=== PATIENT | male | born 1975 | race Caucasian/White ===

== ENCOUNTER 2016-08-22 08:03 | Emergency (ER) | payer BC, SELFPAY ==
[~2016-08-22] VITALS: Ht 172.7 cm; Wt 100.0 kg
[2016-08-22 08:11] VITALS: BP 132/85
[2016-08-22] MEDS ORDERED: KETOROLAC 60 MG/2 ML VIAL (J1885) IM ONE (10:15)
--- NOTE | 2016-08-22 10:58 | REP ---
RIGHT KNEE SERIES, FIVE VIEWS: There is no evidence of an acute fracture, dislocation or intrinsic bone disease. There is a suprapatellar joint effusion. IMPRESSION: No fracture or dislocation. There is a suprapatellar joint effusion. Signed by Roldan Miller MD 08/22/2016 08:18 P
[2016-08-22] MEDS ORDERED: NORCOTAB PO (11:06)
[2016-08-22] MEDS ORDERED: INDO50CA PO (11:11)
== END 2016-08-22 11:18 | disposition home or self-care (01) ==
LOC: M ED 09:36
DX: S83.91XA Sprain of unspecified site of right knee, initial encounter (principal); M25.571 Pain in right ankle and joints of right foot; X58.XXXA Exposure to other specified factors, initial encounter; Y92.009 Unspecified place in unspecified non-institutional (private) residence as the place of occurrence of the external cause; Y93.01 Activity, walking, marching and hiking; Y99.8 Other external cause status; M10.9 Gout, unspecified
CPT/HCPCS: 73564; 96372; 99283; J1885

== ENCOUNTER 2016-11-21 17:09 | Emergency (ER) | payer BC, SELFPAY ==
[~2016-11-21] VITALS: Ht 172.7 cm; Wt 102.3 kg
[~2016-11-21 17:09] MED LIST: INDO50CA PO; NORCOTAB PO
[2016-11-21] MEDS ORDERED: ASPIRIN 81 MG CHEW TABLET PO ONE (18:15)
[2016-11-21 18:35] LABS: BASO # 0.1 K/mm3 (0.0-0.2); BASO % 0.8 % (0.0-1.0); EOS # 0.1 K/mm3 (0.0-0.50); EOS % 1.6 % (0.0-3.0); LARGE UNSTAINED CELL # 0.1 K/mm3 (0.0-0.4); LARGE UNSTAINED CELL % 1.7 % (0.0-4.0); LYMPH # 1.8 K/mm3 (1.5-4.5); LYMPH % 22.7 % (24.0-44.0); MEAN CORPUSCULAR HEMOGLOBIN 32.5 pg (27.0-33.0); MEAN CORPUSCULAR HGB CONC 33.8 g/dl (32.0-36.5); MEAN CORPUSCULAR VOLUME 96.2 fl (80.0-96.0); MONO # 0.4 K/mm3 (0.0-0.8); MONO % 5.9 % (0.0-5.0); NEUTROPHILS # 4.8 K/mm3 (1.8-7.7); NEUTROPHILS % 67.2 % (36.0-66.0); PLATELET COUNT, AUTOMATED 334 k/mm3 (150-450); RED CELL DISTRIBUTION WIDTH 12.1 % (11.5-14.5); WHITE BLOOD COUNT 7.2 K/mm3 (4.0-10.0)
[2016-11-21 18:48] LABS: ALBUMIN 4.3 GM/DL (3.2-5.2); ALKALINE PHOSPHATASE 60 U/L (45-117); ALT/SGPT 57 U/L (12-78); ANION GAP 9 MEQ/L (8-16); AST/SGOT 31 U/L (15-37); BILIRUBIN,DIRECT 0.1 MG/DL (0.0-0.2); BILIRUBIN,TOTAL 0.5 MG/DL (0.2-1.0); BLOOD UREA NITROGEN 13 MG/DL (7-18); CALCIUM LEVEL 8.9 MG/DL (8.5-10.1); CARBON DIOXIDE LEVEL 26 MEQ/L (21-32); CHLORIDE LEVEL 109 MEQ/L (98-107); CREATININE FOR GFR 1.15 MG/DL (0.70-1.30); GLOMERULAR FILTRATION RATE > 60.0 (>60); GLUCOSE, FASTING 92 MG/DL (70-105); SODIUM LEVEL 144 MEQ/L (136-145); TOTAL PROTEIN 8.2 GM/DL (6.4-8.2)
--- NOTE | 2016-11-21 18:59 | REP ---
Portable chest x-ray: Single view. History: Chest pain. Comparison study: April 23, 2007. Findings: EKG monitoring electrodes overlie the chest. The heart is not enlarged. Lung barrios are clear. Pulmonary vasculature is not increased. No significant bony abnormality. Impression: No active disease. Signed by Arcadio Friedman MD 11/21/2016 07:11 P
[2016-11-21] MEDS ORDERED: NS 1,000 ML IV ONE (19:45)
[2016-11-21] MEDS ORDERED: KETOROLAC 30 MG/ML VIAL (J1885) IV ONE (19:45)
[2016-11-21] MEDS ORDERED: ISOVUE-370 76% 100ML VIAL (Q9967) As Ordered ONE (19:52)
--- NOTE | 2016-11-21 20:08 | ECGEPIP ---
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
--- NOTE | 2016-11-21 20:50 | REPUSA ---
CT angiogram of the chest Clinical statement: Chest pain and shortness of breath. Technique: Multiple axial CT images were obtained from the thoracic inlet through the upper abdomen a fter a bolus administration of nonionic intravenous contrast. Coronal and sagittal reconstructions we re also obtained. No comparison is available. Findings: The pulmonary arteries are well-opacified with contrast, with no intraluminal filling defec ts to suggest embolism. The thoracic aorta is unremarkable. Thyroid gland is within normal limits. Th ere is no thoracic lymphadenopathy. There are no pericardial or pleural effusions. The lungs are pat r. Limited imaging of the upper abdomen is unremarkable. There are no suspicious osseous lesions. Impression: Unremarkable CT examination of the chest. No evidence of pulmonary embolism.
[2016-11-21 21:15] VITALS: BP 130/85
[2016-11-21] MEDS ORDERED: MORPHINE 2 MG/ML 1ML SYRINGE IV ONE (22:00)
[2016-11-21] MEDS ORDERED: KETO10TAB PO (22:55)
--- NOTE | 2016-11-22 05:59 | ECGEPIP ---
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
== END 2016-11-21 23:25 | disposition home or self-care (01) ==
LOC: M ED 17:09
DX: R07.89 Other chest pain (principal); M10.9 Gout, unspecified; Z79.899 Other long term (current) drug therapy
CPT/HCPCS: 71010; 71275; 80048; 80076; 82550; 82553; 83690; 83880; 85025; 93005; 93041; 94760; 96374; 96375; 99285; J1885; Q9967

== ENCOUNTER 2017-04-10 09:30 | Emergency (ER) | payer MEDICAID, SELFPAY ==
[2017-04-10 10:32] LABS: INFLUENZA A AMPLIFICATION NEGATIVE (NEGATIVE); INFLUENZA B AMPLIFICATION NEGATIVE (NEGATIVE)
[2017-04-10] MEDS: ALBUTEROL 90 MCG/ACT 8GM HFA INHALER INH (11:06)
== END 2017-04-10 11:32 | disposition home or self-care (01) ==
LOC: M ED 09:30
DX: J20.8 Acute bronchitis due to other specified organisms (principal); M10.9 Gout, unspecified
CPT/HCPCS: 94640

== ENCOUNTER 2017-05-29 08:21 | Emergency (ER) | payer OTHER, MEDICAID ==
[2017-05-29] MEDS: KETOROLAC TROMETHAMINE 10 MG TAB PO (09:59)
== END 2017-05-29 11:36 | disposition home or self-care (01) ==
LOC: M ED 08:21
DX: S63.502A Unspecified sprain of left wrist, initial encounter (principal); W22.09XA Striking against other stationary object, initial encounter; Y92.89 Other specified places as the place of occurrence of the external cause; M10.9 Gout, unspecified; Z79.899 Other long term (current) drug therapy
CPT/HCPCS: 73110

== ENCOUNTER → 2018-06-22 | Outpatient (CLI) | payer OTHER ==
[~2018-06-22] MED LIST changes: +DICL75TA PO; +HYDR-3715 PO; +KETO10TAB PO; +MUCI600T31 PO; +MUCI600T37 PO; -NORCOTAB PO; +VENTAER IN
[2018-06-22 17:19] LABS: ALBUMIN 4.4 GM/DL (3.2-5.2); BLOOD UREA NITROGEN 17 MG/DL (7-18); CALCIUM LEVEL 8.8 MG/DL (8.5-10.1); CARBON DIOXIDE LEVEL 23 MEQ/L (21-32); CHLORIDE LEVEL 104 MEQ/L (98-107); CREATININE FOR GFR 0.98 MG/DL (0.70-1.30); GLOMERULAR FILTRATION RATE > 60.0 (>60); GLUCOSE, FASTING 81 MG/DL (70-100); POTASSIUM SERUM 4.5 MEQ/L (3.5-5.1); SODIUM LEVEL 138 MEQ/L (136-145); URIC ACID 8.3 MG/DL (3.5-7.2)
== END ==
LOC: M WUC 12:58
PROVIDERS: ATTEND Physician Assistant
DX: M79.671 Pain in right foot (principal)

== ENCOUNTER → 2018-08-02 | Outpatient (REF) | payer OTHER ==
[~2018-08-02] MED LIST changes: -INDO50CA PO; +INDO50CA11 PO
[2018-08-02 17:35] LABS: ALBUMIN 4.5 GM/DL (3.2-5.2); ALT/SGPT 75 U/L (12-78); BILIRUBIN,TOTAL 0.7 MG/DL (0.2-1.0); BLOOD UREA NITROGEN 16 MG/DL (7-18); CALCIUM LEVEL 9.4 MG/DL (8.5-10.1); CARBON DIOXIDE LEVEL 26 MEQ/L (21-32); CHLORIDE LEVEL 106 MEQ/L (98-107); CHOLESTEROL LEVEL 164 MG/DL (<200); CHOLESTEROL RISK RATIO 2.779 (<5); CREATININE FOR GFR 1.05 MG/DL (0.70-1.30); FREE T4 1.05 NG/DL (0.76-1.46); GLOMERULAR FILTRATION RATE > 60.0 (>60); GLUCOSE, FASTING 93 MG/DL (70-100); HDL CHOLESTEROL 59 MG/DL (>40); LDL CHOLESTEROL 79 MG/DL (<100); NON-HDL-C 105 MG/DL; POTASSIUM SERUM 4.4 MEQ/L (3.5-5.1); SODIUM LEVEL 140 MEQ/L (136-145); TOTAL PROTEIN 7.7 GM/DL (6.4-8.2); TRIGLYCERIDES LEVEL 128 MG/DL (<150); URIC ACID 8.6 MG/DL (3.5-7.2)
[2018-08-02 17:37] LABS: TOTAL 25(OH) VITAMIN D 17.9 NG/ML (30.0-100.0)
[2018-08-02 17:39] LABS: HEMOGLOBIN A1c 5.3 %
[2018-08-02 17:44] LABS: BASO % 0.4 % (0.0-1.0); EOS # 0.1 10^3/uL (0.0-0.50); EOS % 0.7 % (0.0-3.0); HEMATOCRIT 43.4 % (42.0-52.0); HEMOGLOBIN 14.9 g/dl (13.5-17.5); LYMPH # 2.4 10^3/uL (1.5-4.5); LYMPH % 31.8 % (24.0-44.0); MEAN CORPUSCULAR HEMOGLOBIN 33.8 pg (27.0-33.0); MEAN CORPUSCULAR HGB CONC 34.3 g/dl (32.0-36.5); MEAN CORPUSCULAR VOLUME 98.4 fl (80.0-96.0); MONO # 0.5 10^3/uL (0.0-0.8); MONO % 6.4 % (0.0-5.0); NEUTROPHILS # 4.6 10^3/uL (1.8-7.7); NEUTROPHILS % 60.3 % (36.0-66.0); PLATELET COUNT, AUTOMATED 292 10^3/uL (150-450); RED BLOOD COUNT 4.41 10^6/uL (4.30-6.10); WHITE BLOOD COUNT 7.7 10^3/uL (4.0-10.0)
[2018-08-07 00:07] LABS: Lyme Disease IgG Ab 18 kDa Ban Absent (.); Lyme Disease IgG Ab 23 kDa Ban Absent (.); Lyme Disease IgG Ab 28 kDa Ban Absent (.); Lyme Disease IgG Ab 30 kDa Ban Absent (.); Lyme Disease IgG Ab 39 kDa Ban Absent (.); Lyme Disease IgG Ab 41 kDa Ban Present (.); Lyme Disease IgG Ab 45 kDa Ban Absent (.); Lyme Disease IgG Ab 58 kDa Ban Absent (.); Lyme Disease IgG Ab 66 kDa Ban Absent (.); Lyme Disease IgG Ab 93 kDa Ban Absent (.); Lyme Disease IgG West Blot Int Negative (.); Lyme Disease IgG/IgM Antibodie 1.21 ISR (0.00-0.90); Lyme Disease IgM Ab 23 kDa Ban Present (.); Lyme Disease IgM Ab 39 kDa Ban Absent (.); Lyme Disease IgM Ab 41 kDa Ban Present (.); Lyme Disease IgM Ab Quantitati 0.81 index (0.00-0.79); Lyme Disease IgM West Blot Int Positive (.)
== END ==
LOC: M LAB REF 16:23
PROVIDERS: ATTEND Internal Medicine Pulmonary Disease
DX: Z13.228 Encounter for screening for other metabolic disorders (principal)

== ENCOUNTER → 2018-08-27 | Outpatient (CLI) | payer OTHER ==
--- NOTE | 2018-08-27 16:14 | REP ---
Clinical: Left shoulder pain . Technique: Internal rotation, external rotation, and Y view left shoulder . Findings: No acute fracture or dislocation. The acromioclavicular and glenohumeral joints are intact. No periarticular calcifications or degenerative changes are appreciated. Sub acromial space is normal. Surrounding soft tissues are unremarkable. Impression: Normal left shoulder radiographs. Electronically Signed by Curt Omer MD 08/27/2018 04:05 P
== END ==
LOC: M RAD 15:27
PROVIDERS: ATTEND Family Medicine
DX: M25.512 Pain in left shoulder (principal)

== ENCOUNTER 2018-09-11 10:06 | Emergency (ER) | payer OTHER ==
[~2018-09-11] VITALS: Ht 177.8 cm; Wt 104.5 kg
[2018-09-11] MEDS ORDERED: VITA500045 (10:13)
[2018-09-11] MEDS ORDERED: PROB500T8 (10:13)
[2018-09-11] MEDS ORDERED: OMEP-221 (10:13)
[2018-09-11] MEDS ORDERED: ZYLO300T6 (10:13)
--- NOTE | 2018-09-11 11:07 | REP ---
A left wrist series: Four views. History: Pain. History of gout. Swelling. Comparison study May 29, 2017. Findings: Four views of the left wrist demonstrate normal bones, joints, and soft tissues. There is no radiographic evidence of arthropathy. No erosive changes seen. Impression: Negative left wrist radiographs. Electronically Signed by Arcadio Friedman MD 09/11/2018 10:59 A
[2018-09-11] MEDS ORDERED: INDO50CA11 PO (11:39)
[2018-09-11] MEDS ORDERED: COLCHICINE 0.6 MG TAB PO ONE (11:45)
[2018-09-11 11:55] VITALS: BP 156/95
[2018-09-11] MEDS ORDERED: INDOMETHACIN 25 MG CAP PO ONE (12:00)
== END 2018-09-11 11:57 | disposition home or self-care (01) ==
LOC: M ED 10:06
DX: M10.032 Idiopathic gout, left wrist (principal); Z79.899 Other long term (current) drug therapy

== ENCOUNTER → 2018-11-12 | Outpatient (REF) | payer OTHER, MEDICAID ==
[~2018-11-12] MED LIST changes: -INDO50CA11 PO; +INDO50CA91 PO; +OMEP-221; +PROB500T8; +VITA500045; +ZYLO300T6
[2018-11-12 14:18] LABS: ALT/SGPT 80 U/L (12-78); BILIRUBIN,TOTAL 0.3 MG/DL (0.2-1.0); BLOOD UREA NITROGEN 14 MG/DL (7-18); CALCIUM LEVEL 9.3 MG/DL (8.5-10.1); CARBON DIOXIDE LEVEL 24 MEQ/L (21-32); CHLORIDE LEVEL 108 MEQ/L (98-107); CREATININE FOR GFR 1.28 MG/DL (0.70-1.30); GLOMERULAR FILTRATION RATE > 60.0 (>60); GLUCOSE, FASTING 105 MG/DL (70-100); POTASSIUM SERUM 4.9 MEQ/L (3.5-5.1); SODIUM LEVEL 140 MEQ/L (136-145); TOTAL PROTEIN 7.7 GM/DL (6.4-8.2); URIC ACID 8.2 MG/DL (3.5-7.2)
== END ==
LOC: M LAB REF 12:16
PROVIDERS: ATTEND Family Medicine
DX: M10.2 Drug-induced gout (principal)

== ENCOUNTER → 2018-12-28 | Outpatient (REF) | payer OTHER, MEDICAID | LOC: M LAB REF 12-26 15:29 | PROVIDERS: ATTEND Family Medicine | DX: L30.9 Dermatitis, unspecified (principal) ==

== ENCOUNTER → 2019-04-22 | Outpatient (REF) | payer OTHER, MEDICAID ==
[~2019-04-22] MED LIST changes: +IBUP80TA PO
== END ==
LOC: M LAB REF 15:52
PROVIDERS: ATTEND Nurse Practitioner Family
DX: J03.90 Acute tonsillitis, unspecified (principal)

== ENCOUNTER → 2019-08-08 | Outpatient (REF) | payer OTHER, MEDICAID ==
[2019-08-08 12:49] LABS: BASO % 0.6 % (0.0-1.0); EOS # 0.1 10^3/uL (0.0-0.5); EOS % 1.6 % (0.0-3.0); HEMATOCRIT 45.1 % (42.0-52.0); HEMOGLOBIN 15.4 g/dl (13.5-17.5); LYMPH # 1.8 10^3/uL (1.5-5.0); MEAN CORPUSCULAR HEMOGLOBIN 32.7 pg (27.0-33.0); MEAN CORPUSCULAR HGB CONC 34.1 g/dl (32.0-36.5); MEAN CORPUSCULAR VOLUME 95.8 fl (80.0-96.0); MONO # 0.5 10^3/uL (0.0-0.8); MONO % 8.6 % (0.0-5.0); NEUTROPHILS # 3.8 10^3/uL (1.5-8.5); NEUTROPHILS % 59.7 % (36.0-66.0); PLATELET COUNT, AUTOMATED 272 10^3/uL (150-450); RED BLOOD COUNT 4.71 10^6/uL (4.30-6.10); WHITE BLOOD COUNT 6.3 10^3/uL (4.0-10.0)
[2019-08-08 13:08] LABS: HEMOGLOBIN A1c 5.4 %
[2019-08-08 13:40] LABS: ALBUMIN 4.3 GM/DL (3.2-5.2); ALT/SGPT 47 U/L (12-78); BILIRUBIN,TOTAL 0.8 MG/DL (0.2-1.0); BLOOD UREA NITROGEN 13 MG/DL (7-18); CALCIUM LEVEL 9.2 MG/DL (8.5-10.1); CARBON DIOXIDE LEVEL 25 MEQ/L (21-32); CHLORIDE LEVEL 104 MEQ/L (98-107); CHOLESTEROL LEVEL 196 MG/DL (<200); CHOLESTEROL RISK RATIO 3.111 (<5); CREATININE FOR GFR 1.19 MG/DL (0.70-1.30); GLOMERULAR FILTRATION RATE > 60.0 (>60); GLUCOSE, FASTING 95 MG/DL (70-100); HDL CHOLESTEROL 63 MG/DL (>40); LDL CHOLESTEROL 90 MG/DL (<100); NON-HDL-C 133 MG/DL; POTASSIUM SERUM 4.6 MEQ/L (3.5-5.1); SODIUM LEVEL 137 MEQ/L (136-145); TOTAL 25(OH) VITAMIN D 22.2 NG/ML (30.0-100.0); TOTAL PROTEIN 8.3 GM/DL (6.4-8.2); TRIGLYCERIDES LEVEL 213 MG/DL (<150)
== END ==
LOC: M LAB REF 11:44
PROVIDERS: ATTEND Family Medicine
DX: Z13.228 Encounter for screening for other metabolic disorders (principal)